=== PATIENT | female | born 1955 | race Caucasian/White ===

== ENCOUNTER 2020-04-04 15:43 | Emergency (ER) | payer OTHER ==
[2020-04-04 15:59] VITALS: BP 147/78
--- NOTE | 2020-04-04 16:04 | ER Document Report ---
ED Fall - General Chief Complaint: Fall Injury Stated Complaint: FALL/RIGHT KNEE,SHOULDER PAIN Time Seen by Provider: 04/04/20 16:00 Primary Care Provider: KANDY WATERMAN MD [Primary Care Provider] - Follow up as needed Notes: CHIEF COMPLAINT: Slip and fall HPI: 64-year-old female presenting for right knee pain after slip and fall in [facility]. Slipped and fell forward landing directly on the right knee. Complain s of pain just under the kneecap. Patient states it hurts to try to put weight down on it. Denies ankle or hip injury. Complains of some right shoulder soreness but is not concerned about having broken anything in her shoulder. States that she caught herself with her arm when she went to the ground. Denies wrist or elbow discomfort. ROS: See HPI - all other systems were reviewed and are otherwise negative Constitutional: no fever Integumentary: no rash Allergy: no hives Musculoskeletal: + extremity pain or swelling Neurological: no numbness/tingling MEDICATIONS: I agree with the patient medications as charted by the RN. ALLERGIES: I agree with the allergies as charted by the RN. PAST MEDICAL HISTORY/PAST SURGICAL HISTORY: Reviewed and agree as charted by RN. SOCIAL HISTORY: Reviewed and agree as charted by RN. FAMILY HISTORY: No significant familial comorbid conditions directly related to patient complaint EXAM: Reviewed vital signs as charted by RN. CONSTITUTIONAL: Alert and oriented and responds appropriately to questions. Well-appearing; well-nourished HEAD: Normocephalic; atraumatic EYES: Conjunctivae clear, sclerae non-icteric ENT: normal nose; no rhinorrhea; moist mucous membranes NECK: Supple without meningismus; non-tender; no cervical lymphadenopathy, no masses CARD: symmetric distal pulses RESP: Normal chest excursion without splinting or tachypnea ABD/GI: non-distended BACK: The back appears normal and is non-tender to palpation EXT: Normal ROM in all joints; there is no visible edema or effusion to the right knee. There is tenderness over the inferior aspect of the patella on palpation. No ballottement of the patella. Negative anterior drawer sign no laxity on varus or valgus rotation. There is no hip or ankle discomfort on palpation or range of motion of the right lower extremity. Patient is able to fully range the right shoulder without significant discomfort around the shoulder girdle and is not complaining of any discomfort on palpation of the right shoulder girdle. SKIN: Normal color for age and race; warm; dry; good turgor; no acute lesions noted NEURO: Moves all extremities equally; Motor and sensory function intact PSYCH: The patient's mood and manner are appropriate. Grooming and personal hygiene are appropriate. MDM: 64-year-old female primarily for right knee pain. Has some soreness of the right shoulder but declines x-ray imaging of this. We will obtain an x-ray of the right knee. Patient has no hip or ankle discomfort suggesting fracture or need for imaging - Related data Allergies/Adverse Reactions: Penicillins Allergy (Verified 04/04/20 16:02) Past Medical History - Social History Smoking Status: Unknown if Ever Smoked Family History: Reviewed & Not Pertinent Physical Exam - Vital signs Vitals: Temp Pulse Resp BP Pulse Ox 98.8 F 93 18 147/78 H 99 04/04/20 15:57 04/04/20 15:57 04/04/20 15:57 04/04/20 15:57 04/04/20 15:57 Course - Re-evaluation Re-evalutation: 04/04/20 17:10 X-ray imaging does not reveal evidence of fracture or dislocation. Will place in a knee immobilizer crutches for comfort, pain management follow-up orthopedics - Vital Signs Vital signs: Temp Pulse Resp BP Pulse Ox 98.8 F 93 18 147/78 H 99 04/04/20 15:57 04/04/20 15:57 04/04/20 15:57 04/04/20 15:57 04/04/20 15:57 - Laboratory Results Critical Laboratory Results Reviewed: No Critical Results - Radiology Results Critical Radiology Results Reviewed: No Critical Results Procedures - Immobilization Right Knee Time completed: 17:10 Pre-Proc Neuro Vasc Exam: Normal Immobilizer type: Crutches, Knee immobilizer Performed by: PCT Post-Proc Neuro Vasc Exam: Normal, Unchanged from pre-exam Alignment checked and good: Yes Discharge - Discharge Clinical Impression: Fall Qualifiers: Encounter type: initial encounter Qualified Code(s): W19.XXXA - Unspecified fall, initial encounter Right shoulder strain Qualifiers: Encounter type: initial encounter Qualified Code(s): S46.911A - Strain of unspecified muscle, fascia and tendon at shoulder and upper arm level, right arm, initial encounter Right knee injury Qualifiers: Encounter type: initial encounter Qualified Code(s): S89.91XA - Unspecified injury of right lower leg, initial encounter Condition: Stable Disposition: HOME, SELF-CARE Instructions: Suspected Internal Knee Injury ([facility]) Additional Instructions: 1. ice and elevate the lower extremity as much as possible 2. utilize the crutches as instructed, weight bearing as tolerated with splint on 3. medications for pain as prescribed, no driving on narcotics 4. follow up with orthopedics for further evaluation and treatment, call for appt. 5. do not sleep in the knee immobilizer, take off at night or rest. Prescriptions: Hydrocodone/Acetaminophen [[place] 5-325 mg Tablet] 1 tab PO Q4 PRN #10 tablet PRN Reason: Diclofenac Sodium [Voltaren 50 Mg Tablet.] 50 mg PO BID #20 tablet. Referrals: KANDY WATERMAN MD [Primary Care Provider] - Follow up as needed KEVIN HERNANDEZ JR, DO [ACTIVE PROVISIONAL STAFF] - Follow up as needed
--- NOTE | 2020-04-04 17:07 | RADIOLOGY REPORT (SQ) ---
EXAM DESCRIPTION: KNEE RIGHT 4 VIEWS IMAGES COMPLETED DATE/TIME: 04/04/2020 3:32 pm REASON FOR STUDY: fall. COMPARISON: None. NUMBER OF VIEWS: Four views. TECHNIQUE: AP, lateral, and both oblique radiographic images acquired of the right knee. LIMITATIONS: None. FINDINGS: MINERALIZATION: Normal. BONES: No acute fracture or dislocation. No worrisome bone lesions. JOINT: No effusion. SOFT TISSUES: No soft tissue swelling. No radio-opaque foreign body. OTHER: No other significant finding. IMPRESSION: NEGATIVE STUDY OF THE RIGHT KNEE. NO RADIOGRAPHIC EVIDENCE OF ACUTE INJURY. TECHNICAL DOCUMENTATION: JOB ID: [id number] 2010 [employer]- All Rights Reserved Reading location - IP/workstation name: [email or web address]
--- OUTSIDE RECORDS SUMMARY | 2020-04-07 10:34 | XMS REPORT ---
:1955 Author Organization Formerly [facility], later [facility] Address [facility] [address] [place] [id number] Care Team Providers Name Role Phone Kandy Pinto Primary Care Physician Unavailable Abelardo Pinto MD Attending Clinician Unavailable MD Abelardo Pinto Attending Clinician Unavailable MD Yadi Quevedo Attending Clinician Unavailable MD Yadi Quevedo Attending Clinician Unavailable Allergies, Adverse Reactions, Alerts Allergy Name Allergy Status Severity Reaction(s) Onset Inactive Treat ing Comments Type Date Date Clinician sulfa drugs Drug Active Mild Cutaneous allergy eruption (morphologic abnormality) Penicillins Penicillins Active Rash Sulfa Drugs Sulfa Drugs Active Rash penicillin Drug Active Mild Cutaneous allergy eruption (morphologic abnormality) Medications Ordered Filled Start Stop Current Ordering Indication Dosage Frequency Signature Comments Components Medication Medication Date Date Medication? Clinician (SIG) Name Name Pravastatin 2019-03 No Kandy Zhou Pravastati Sodium 20 - Millie SCHMITZ n Sodium MG Oral 09:29: 20 MG Oral Tablet 07 Tablet TAKE ONE TABLET BY MOUTH EVERY NIGHT AT BEDTIME Quantity: 90 Refills: 0 Kandy Pinto MD Start : 0Active Pravastatin 2019-03 Yes Kandy Zhou Pravastati Sodium 20 - Millie SCHMITZ n Sodium MG Oral 09:29: 20 MG Oral Tablet 07 Tablet TAKE ONE TABLET BY MOUTH EVERY NIGHT AT BEDTIME Quantity: 90 Refills: 0 Kandy Pinto MD Start : 0Active Omeprazole Yes Kandy Zhou Omeprazole 20 MG Oral 9-30 Millie SCHMITZ 20 MG Oral Capsule 12:17: Capsule Delayed 19 Delayed Release Release TAKE 1 CAPSULE BY MOUTH 2 TIMES A DAY , 30 MINUTES PRIOR TO BREAKFAST AND SUPPER Quantity: 180 Refills: 3 Kandy Pinto MD Start : 0Active Meloxicam 2019- No Kandy Zhou Meloxicam 7.5 MG Oral 8-28 Millie SCHMITZ 7.5 MG Tablet 13:59: Oral 04 Tablet TAKE ONE TABLET BY MOUTH EVERY DAY WITH FOOD Quantity: 90 Refills: 3 Kandy Pinto MD Start : 0Active Meloxicam 2019-0 Yes Kandy Zhou Meloxicam 7.5 MG Oral 11-07 Millie SCHMITZ 7.5 MG Tablet 13:59: Oral 04 Tablet TAKE ONE TABLET BY MOUTH EVERY DAY WITH FOOD Quantity: 90 Refills: 3 Kandy Pinto MD Start : 0Active Pravastatin 2019-0 No Kandy Zhou Pravastati Sodium 20 10-21 Millie SCHMITZ n Sodium MG Oral 15:25: 20 MG Oral Tablet 38 Tablet TAKE ONE TABLET BY MOUTH EVERY NIGHT AT BEDTIME Quantity: 90 Refills: 0 Kandy Pinto MD Start : 0Active DULoxetine 2019- Yes Abdulaziz DULoxetine HCl - 20 MG 6-05 Averell HCl - 20 Oral 00:00: D.O. MG Oral Capsule 00 Capsule Delayed Delayed Release Release Particles Particles one daily for 7 days, then two daily Quantity: 60 Refills: 10 Averell D.OAbdulaziz Farah Start : 16-Aug-2019 Active predniSONE 2019-0 Yes Kandy Zhou predniSONE 5 MG Oral 08-07 Millie SCHMITZ 5 MG Oral Tablet 00:00: Tablet 00 TAKE 8 TABLETS THE FIRST DAY THEN DECREASE BY ONE TABLET DAILY UNTIL FINISHED Quantity: 36 Refills: 0 Kandy Pinto MD Start : 0Active Pregabalin 2019-0 Yes Abdulaziz Pregabalin 25 MG Oral 07-21 Averell 25 MG Oral Capsule 00:00: D.O. Capsule 00 one tid Quantity: 90 Refills: 3 Averell D.O.Abdulaziz Start : 0Active Soolantra 1 2019-0 Yes Soolantra % External 2-20 1 % Cream 00:00: External 00 Cream Quantity: 45 Refills: 0 Start : 0Active predniSONE 2018-03 Yes predniSONE 20 MG Oral 2-27 20 MG Oral Tablet 00:00: Tablet 00 Quantity: 18 Refills: 0 Start : 9Active Promethazin 2018-03 Yes Promethazi e-DM 2-27 ne-DM 6.25-15 00:00: 6.25-15 MG/5ML Oral 00 MG/5ML Syrup Oral Syrup Quantity: 118 Refills: 0 Start : 9Active Telmisartan 2018-03 No Kandy Zhou Telmisarta 40 MG Oral 2-11 Millie SCHMITZ n 40 MG Tablet 11:12: Oral 02 Tablet TAKE ONE TABLET BY MOUTH DAILY FOR BLOOD PRESURE Quantity: 90 Refills: 3 Kandy Pinto MD Start : 9Active Gabapentin 2018-03 Yes Kandy Zhou Gabapentin 100 MG Oral - Millie SCHMITZ 100 MG Capsule 00:00: Oral 00 Capsule TAKE ONE IN THE AM, ONE AT NOON AND 2 AT BEDTIME Quantity: 360 Refills: 3 Kandy Pinto MD Start : 9Active aspirin 325 Yes 325mg 325 mg = 1 mg oral 11-27 tab(s), tablet 07:51: PO, BID, # 00 60 tab(s), 0 Refill(s) omeprazole Yes 20mg 20 mg = 1 20 mg oral 11-19 cap(s), delayed 12:55: PO, Daily release 00 capsule Vitamin B Yes 11 1 tab(s), Complex 11-19 PO, Daily 12:55: 00 telmisartan Yes 40mg 40 mg = 1 40 mg oral 11-19 tab(s), tablet 12:54: PO, Daily 00 fluorometho Yes 1[drp] 1 drop(s), lone 0.1% 11-19 Eyes-Both, ophthalmic 12:53: Daily suspension 00 Omeprazole No Kandy Zhou Omeprazole 20 MG Oral 10-10 Millie SCHMITZ 20 MG Oral Capsule 13:31: Capsule Delayed 03 Delayed Release Release TAKE 1 CAPSULE BY MOUTH 2 TIMES A DAY , 30 MINUTES PRIOR TO BREAKFASTA ND SUPPER Quantity: 180 Refills: 3 Kandy Pinto MD Start : 9Active Pravastatin No Kandy Zhou Pravastati Sodium 20 10-10 Millie SCHMITZ n Sodium MG Oral 13:30: 20 MG Oral Tablet 54 Tablet TAKE ONE TABLET BY MOUTH EVERY NIGHT AT BEDTIME Quantity: 90 Refills: 3 Kandy Pinto MD Start : 9Active Meloxicam No Kandy Zhou Meloxicam 7.5 MG Oral 10-10 Millie SCHMITZ 7.5 MG Tablet 13:27: Oral 00 Tablet TAKE ONE TABLET BY MOUTH EVERY DAY WITH FOOD Quantity: 90 Refills: 3 Kandy Pinto MD Start : 9Active Fluorometho Yes Fluorometh lone 0.1 % 4-03 olone 0.1 Ophthalmic 00:00: % Suspension 00 Ophthalmic Suspension Quantity: 5 Refills: 0 Start : 13-Jun-2018 Active Shingrix 50 Yes Kandy Zhou Shingrix MCG - Millie SCHMITZ 50 MCG Intramuscul 00:00: Intramuscu ar 00 lar Suspension Suspension Reconstitut Reconstitu ed al INJECT SECOND DOSE 2-6 MONTHS AFTER FIRST DOSE. Quantity: 1 Refills: 0 Kandy Pinto MD Start : 9Active Shingrix 50 Yes Kandy Zhou Shingrix MCG/0.5ML 04-12 Millie SCHMITZ 50 Intramuscul 00:00: MCG/0.5ML ar 00 Intramuscu Suspension lar Reconstitut Suspension ed Reconstitu al INJECT DOSE DIRECTED. Quantity: 1 Refills: 0 Kandy Pinto MD Start : 9Active Levothyroxi Yes Levothyrox ne Sodium 30 ine Sodium 112 MCG 00:00: 112 MCG Oral Tablet 00 Oral Tablet Quantity: 90 Refills: 0 Start : 9Active Telmisartan Yes Kandy Zhou 1 QD Telmisarta 80 MG Oral -30 Millie SCHMITZ n 80 MG Tablet 00:00: Oral 00 Tablet TAKE 1 TABLET DAILY Quantity: 90 Refills: 2 Kandy Pinto MD Start : 8Active Albuterol 2016-03 Yes Kandy Zhou Albuterol Sulfate HFA 0-18 Millie SCHMITZ Sulfate 108 (90 00:00: HFA 108 Base) 00 (90 Base) MCG/ACT MCG/ACT Inhalation Inhalation Aerosol Aerosol Solution Solution INHALE 1-2 PUFFS EVERY 4-6 HOURS NEEDED AND DIRECTED. Quantity: 1 Refills: 6 Kandy Pinto MD Start : 7Active 8.5 GM Inhaler pravastatin Yes 20mg 20 mg = 1 20 mg oral 2-11 tab(s), tablet 12:30: PO, qPM, 0 00 Refill(s) Synthroid Yes 112ug 112 mcg = 112 mcg 2-11 1 tab(s), (0.112 mg) 12:29: PO, qAM, 0 oral tablet 00 Refill(s) Meloxicam No Kandy B Meloxicam 7.5 MG Oral 4-05 Millie SCHMITZ 7.5 MG Tablet 00:00: Oral 00 Tablet TAKE ONE TABLET BY MOUTH EVERY DAY WITH FOOD Quantity: 90 Refills: 3 Kandy Pinto MD Start : 16-Jun-2011 Active HYDROcodone No Kandy B HYDROcodon -Acetaminop 12-08 Millie hernandezAcetami n hen 5-325 00:00: ophen MG Oral 00 5-325 MG Tablet Oral Tablet TAKE 1 TABLET EVERY 4 TO 6 HOURS NEEDED FOR SEVERE PAIN. Quantity: 120 Refills: 0 Kandy Pinto MD Start : 1Active HYDROcodone No Kandy B Roslynodon -Acetaminop 12-08 Millie hernandezAcetami n hen 5-325 00:00: ophen MG Oral 00 5-325 MG Tablet Oral Tablet TAKE 1 TABLET EVERY 4 TO 6 HOURS NEEDED FOR SEVERE PAIN. Quantity: 120 Refills: 0 Kandy Pinto MD Start : 1Active HYDROcodone No Kandy B HYDROcodon -Acetaminop 12-08 Millie hernandezAcetami n hen 5-325 00:00: ophen MG Oral 00 5-325 MG Tablet Oral Tablet TAKE 1 TABLET EVERY 4 TO 6 HOURS NEEDED FOR SEVERE PAIN. Quantity: 120 Refills: 0 Kandy Pinto MD Start : 1Active HYDROcodone No Kandy B HYDROcodon -Acetaminop 12-08 Millie hernandezAcetami n hen 10-325 00:00: ophen MG Oral 00 10-325 MG Tablet Oral Tablet Refills: 0 Kandy Pinto MD Start : 1Active HYDROcodone No Kandy B HYDROcodon -Acetaminop 12-08 Millie hernandezAcetami n hen 10-325 00:00: ophen MG Oral 00 10-325 MG Tablet Oral Tablet take one tablet every 4-6 hours prn severe pain Quantity: 100 Refills: 0 Kandy Pinto MD Start : 1Active HYDROcodone 2011-0 No Kandy B HYDROcodon -Acetaminop 12-08 Millie hernandezAcetami n hen 10-325 00:00: ophen MG Oral 00 10-325 MG Tablet Oral Tablet take one tablet every 4-6 hours prn severe pain Quantity: 100 Refills: 0 Kandy Pinto MD Start : 1Active HYDROcodone No Kandy B HYDROcodon -Acetaminop 12-08 Millie hernandezAcetami n hen 10-325 00:00: ophen MG Oral 00 10-325 MG Tablet Oral Tablet take one tablet every 4-6 hours prn severe pain Quantity: 100 Refills: 0 Kandy Pinto MD Start : 1Active HYDROcodone Yes Kandy B HYDROcodon -Acetaminop 12-08 Millie hernandezAcetami n hen 10-325 00:00: ophen MG Oral 00 10-325 MG Tablet Oral Tablet take one tablet every 4-6 hours prn severe pain Quantity: 100 Refills: 0 Kandy Pinto MD Start : 1Active Levothyroxi Yes Kandy B Levothyrox ne Sodium - Millie SCHMITZ ine Sodium 125 MCG 00:00: 125 MCG Oral Tablet 00 Oral Tablet TAKE 1 TABLET BY MOUTH EVERY MORNING 30 MINUTES BEFORE BREAKFAST Quantity: 90 Refills: 3 Kandy Pinto MD Start : 0Active Cyclobenzap Yes Kandy B Cyclobenza rine HCl - 3- Millie SCHMITZ nelly HCl 10 MG Oral 00:00: - 10 MG Tablet 00 Oral Tablet TAKE ONE TABLET 3 TIMES A DAY WHEN NEEDED Quantity: 270 Refills: 0 Kandy Pinto MD Start : 8Active Aspirin 81 2004-0 Yes Esther 1 QD Aspirin 81 MG TABS 11-19 A Avitia MG TABS 00:00: TAKE 1 00 TABLET DAILY. Refills: 0 Esther Avitia MD Start : 19-Nov-2004 Active Problems Condition Condition Condition Status Onset Resolution Last Treatin g Comments Name Details Category Date Date Treatment Clinician Date Colon, Colon, Problem Active 2011-03 diverticulo diverticulo 0-18 sis sis 00:00: 00 Immunizatio Immunizatio Problem Active n due n due Esophageal Esophageal Problem Active reflux reflux Lightheaded Lightheaded Problem Active ness ness Stress Stress Problem Active incontinenc incontinenc e in female e in female Allergic Allergic Problem Active rhinitis rhinitis Pneumonia Pneumonia Problem Active due to due to COVID-19 COVID-19 virus virus Solitary Solitary Problem Active pulmonary pulmonary nodule nodule Fuchs' Fuchs' Problem Active corneal corneal dystrophy dystrophy Malaise and Malaise and Problem Active fatigue fatigue Visit for Visit for Problem Active screening screening mammogram mammogram Hypoglycemi Hypoglycemi Problem Active a a Musculoskel Musculoskel Problem Active etal pain, etal pain, chronic chronic Toe pain, Toe pain, Problem Active left left Ingrown Ingrown Problem Active nail of nail of great toe great toe of left of left foot foot Pain in Pain in Problem Active joint of joint of right right shoulder shoulder Former Former Problem Active smoker smoker Former Former Problem Active cigarette cigarette smoker smoker Chronic low Chronic low Problem Active back pain back pain 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 Fatigue Fatigue Problem Active Injury of Injury of Problem Active right right axillary axillary nerve nerve Hypertensio Hypertensio Problem Active n n Hypercholes Hypercholes Problem Active terolemia terolemia Impaired Impaired Problem Active glucose glucose regulation regulation 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 At risk of At risk for Problem suspend P roblem infection infection(C ed ad ded (finding) onfirmed)2 aut omatic ally by system based on initiati o n of the At Risk for Infectio n Plan of Care. At risk for Fall Problem suspend Prob jameel falls risk(Confir ed adde d (finding) med)4 automa tic ally by system based on initiati o n of the Fall Ris k Plan of Care. Discharge Discharge Problem active Prob jameel planning planning(Co add ed (procedure) nfirmed)3 au tomatic ally by system based on initiati o n of the Discharg e Planning Plan of Care Procedures Procedure Date / Time Performed Performing Clinician Devic e CT - Low Dose CT Lung Cancer 2020-02-28 00:00:00 Screening CBC 2020-02-25 00:00:00 Renal Panel 2020-02-25 00:00:00 Urinalysis 2020-02-25 00:00:00 HGBA1C 2020-02-25 00:00:00 MG-Breast Tomosynthesis(3D) 2019-12-04 00:00:00 Screening (Bilateral) MG-Mammogram Screening (Bilateral) 2019-12-04 00:00:00 HGBA1C 2019-12-03 00:00:00 TSH 2019-12-03 00:00:00 Free T4 2019-12-03 00:00:00 CBC 2019-12-03 00:00:00 CMP(Complete Metabolic Panel) 2019-12-03 00:00:00 Urinalysis 2019-12-03 00:00:00 Lipid Panel 2019-12-03 00:00:00 Total Reverse Shoulder Replacement 2018-11-26 07:59:00 IPO (Right)1 Procedures not documented Arthroscopy2 left cornea transplant right corna transplant tubal ligation Results Test Description Test Time Test Comments Text Results Atomic Results Result Comments CBC 2020-03-03 11:32:00 Test Item Value Reference Range Comments White Blood Cell (test code = White Blood Cell) 8.5 K/uL 3.5-11.1 Red Blood Cell (test code = Red Blood Cell) 4.29 {M/uL} 3.69 -4.87 Hemoglobin (test code = Hemoglobin) 13.6 g/dL 11.4-14.4 Hematocrit (test code = Hematocrit) 42 % 33-41 Mean Corpuscular Volume (test code = Mean Corpuscular Volume) 97 .4 fL 79.0-95.0 Mean Corpuscular Hemoglobin (test code = Mean Corpuscular 31.7 p g/mL 27.0-33.0 Hemoglobin) Mean Corpuscular Hemoglobin Concentration (test code = Mean 32.5 g/dL 33.5-35.5 Corpuscular Hemoglobin Concentration) Red Cell Distribution Width (test code = Red Cell 13.0 % 12.0-15.0 Distribution Width) Platelet (test code = Platelet) 234 K/uL 130-353 Mean Platelet Volume (test code = Mean Platelet Volume) 9.7 fL 7.5-10.7 Neutrophil Count, absolute (test code = Neutrophil Count, 5.0 K/ uL 1.9-7.2 absolute) Neutrophil Count Percentage (test code = Neutrophil Count 59.3 % 43.0-72.0 Percentage) Lymphocyte Count, absolute (test code = Lymphocyte Count, 2.4 K/ uL 1.1-2.7 absolute) Lymphocyte Count Percentage (test code = Lymphocyte Count 28.7 % 17.0-44.0 Percentage) Monocyte Count, absolute (test code = Monocyte Count, 0.7 K/uL 0.3-0.8 absolute) Monocyte Count Percentage (test code = Monocyte Count 8.6 % 4.5-12.4 Percentage) Eosinophil Count, absolute (test code = Eosinophil Count, 0.2 K/ uL 0.0-0.5 absolute) Eosinophil Count Percentage (test code = Eosinophil Count 2.5 % 0.7-7.8 Percentage) Basophil Count, absolute (test code = Basophil Count, 0.0 K/uL 0.0-0.1 absolute) Basophil Count Percentage (test code = Basophil Count 0.5 % 0.2-1.1 Percentage) Nucleated Red Blood Cell, absolute (test code = Nucleated Re d 0.00 K/uL 0.00-0.00 Blood Cell, absolute) Nucleated Red Blood Cell, percentage (test code = Nucleated 0.00 % 0.00-0.00 Red Blood Cell, percentage) [id number] 11:32:00 Test Item Value Reference Range Comments Urine Color (test code = Urine LT. YELLOW Yellow Color) Urine Clarity (test code = Urine CLEAR Clear Clarity) Urine Glucose (test code = Urine NEGATIVE Negative Glucose) Urine Ketones (test code = Urine NEGATIVE Negative Ketones) Urine Bilirubin (test code = Urine NEGATIVE Negative Bilirubin) Urine Specific [place] (test code 1.010 1.010-1.030 = Urine Specific [place]) Urine Blood (test code = Urine TRACE-INTACT Negative Blood) Urine pH (test code = Urine pH) 7.0 5.0-8.0 Urine Protein (test code = Urine NEGATIVE Negative Protein) Urine Urobilinogen (test code = 0.2 Eu/dl 0.2 Urine Urobilinogen) Urine Nitrites (test code = Urine NEGATIVE Negative Nitrites) Urine Leukocytes (test code = NEGATIVE Negative 0- 2 WBC0-2 RBC0-2 EPI Urine Leukocytes) Hemoglobin [id number] 11:32:00 Test Item Value Reference Range Comments Hemoglobin A1C (test code = 4548-4) 5.8 % 4.3-6.2 [id number] 11:32:00 Test Item Value Reference Range Comments Glucose (test code = Glucose) 102 mg/dL 74-106 Sodium (test code = Sodium) 144 mmol/L 135-145 Potassium (test code = Potassium) 4.8 mmol/L 3.5-5.3 Chloride (test code = Chloride) 107 mmol/L 98-107 CO2 (test code = CO2) 32 mmol/L 22-30 Creatinine, serum (test code = Creatinine, serum) 0.80 mg/dL 0.10-1.04 Glomerular Filtration Rate (test code = >60 >60 Glomerular Filtration Rate) Glomerular Filtration Rate AA (test code = >60 >60 Glomerular Filtration Rate AA) Blood Urea Nitrogen (test code = Blood Urea 11 mg/dL 7-17 Nitrogen) Calcium (test code = Calcium) 9.3 mg/dL 8.4-10.5 Phosphorus (test code = Phosphorus) 3.8 mg/dL 2.5-4.5 Albumin (test code = 04673-6) 3.9 g/dL 3.5-5.0 CT - Low Dose CT Lung Cancer [id number] 10:52:00ORDERING PROVIDER: Kandy Caruso LOCATION: [facility] DESCRIPTION: CT - Low Dose CT Lung Cancer ScreeningIMAGES COMPLETED DATE/TIME: 03/03/2020 10:52 amREASON FOR STUDY: Z87.891Former cigarette smokerHas the patient had a Chest CT scan within the past year?Was the patientoffered tobacco cessation counseling?Was the patient engaged in shared decision making for this test?Does the patient have signs or symptoms of Lung Cancer?Is the patient a smoker?How many pack years?How many years since quitting smoking?Patients age:COMPARISON: 02/04/2019, 09/29/2017TECHNIQUE: Low Dose CT scan performed of the chest without intravenous contrast for purposes of screening for lung cancer. Images reviewed with lung, soft tissue and bone windows. Reconstructed coronal and sagittal MPR images reviewed. All images stored on PACS.All CT scanners at this facility use dose modulation, iterative reconstruction, and/or weight based dosing when appropriate to reduce radiation dose to as low as reasonably achievable (ALARA).[facility]: Dose Right [facility]: CareDose [facility]: Dose Right [facility]: Teradose 4D [facility]: Smart TechnologiesRADIATION DOSE: CTDIvol Mean:1.94, mGy DLP:67.72, mGy.cm 1.94 mGy.0.88 mSv.LIMITATIONS: No technical limitations.FINDINGS: LUNG NODULES: Stable 5 mm nodule you will posteromedial aspect the right upper lung zone. Stable 14 mm partially calcified mass right lower lung zone -most likely benign granuloma.REMAINING LUNGS AND PLEURA: No pleural effusions or calcifications. No pneumothorax. Patchy bilateral infiltrates - most likely post trophic when correlatedwith clinical information.HILAR AND MEDIASTINAL STRUCTURES: No identified masses. No abnormal nodes.HEART AND VASCULAR STRUCTURES: No aortic aneurysm. No pericardial effusion. No cardiac devices.CORONARY ARTERY CALCIFICATIONS: No significant calcifications.UPPER ABDOMEN, THYROID, BONES, OTHER SOFT TISSUES: No significant findings.IMPRESSION: BENIGN FINDINGS IN THE LUNGS.BILATERAL PATCHY INFILTRATES POST COULD LEAD INFECTION. FINDINGS DISCUSSED WITH DR. KANDY MORALEZ: LUNGRADS: 2 BENIGN APPEARANCE OR BEHAVIOR. NODULES WITH A VERY LOW LIKELIHOOD OF BECOMING A CLINICALLY ACTIVE CANCER DUE TO SIZE OR LACK OF GROWTH.MODIFIER: NONE.RECOMMENDATION: Continue annual screening with LDCT in 12months.COMMENT: CRITERIA:Solid nodule(s): < 6 mm; new < 4 mm.Part solid nodule(s): < 6 mm total diameter on baseline screening.Non solid nodule(s) (GGN): < 20 mm OR ? 20 and unchanged or slowly growing.Category 3 or 4 nodules unchanged for ? 3 months.TECHNICAL DOCUMENTATION: JOB ID: [id number] ID # [id number]: Final reports with documentation of one or more dose reduction techniques (e.g., Automated exposure control, adjustment of the mA and/or kV according to patient size, use of iterative reconstruction technique)? 2010 [employer] RadiologyElectronically Signed By: Jordin Dye M.D. Mar 03 2020 2:28 PMReading location - IP/workstation name: [id number] RdRp Resp QI [id number] 00:00:00 Test Item Value Reference Range Comments SARS-CoV-2 RdRp Resp QI Positive [place] [facility] Case ID: MK+probe (test code = COVID_105 149124 20092-2) [id number] 10:06:00 Test Item Value Reference Range Comments White Blood Cell (test code = White Blood Cell) 9.5 K/uL 3.5-11.1 Red Blood Cell (test code = Red Blood Cell) 4.36 {M/uL} 3.69 -4.87 Hemoglobin (test code = Hemoglobin) 14.0 g/dL 11.4-14.4 Hematocrit (test code = Hematocrit) 43 % 33-41 Mean Corpuscular Volume (test code = Mean 99.3 fL 79.0-9 5.0 Corpuscular Volume) Mean Corpuscular Hemoglobin (test code = Mean 32.1 pg/mL 27 .0-33.0 Corpuscular Hemoglobin) Mean Corpuscular Hemoglobin Concentration (test 32.3 g/dL 33.5-35.5 code = Mean Corpuscular Hemoglobin Concentration) Red Cell Distribution Width (test code = Red 12.7 % 12. 0-15.0 Cell Distribution Width) Platelet (test code = Platelet) 239 K/uL 130-353 Mean Platelet Volume (test code = Mean Platelet 9.3 fL 7.5-10.7 Volume) Neutrophil Count, absolute (test code = 5.7 K/uL 1.9-7.2 Neutrophil Count, absolute) Neutrophil Count Percentage (test code = 59.9 % 43.0-72 .0 Neutrophil Count Percentage) Lymphocyte Count, absolute (test code = 2.7 K/uL 1.1-2.7 Lymphocyte Count, absolute) Lymphocyte Count Percentage (test code = 28.5 % 17.0-44 .0 Lymphocyte Count Percentage) Monocyte Count, absolute (test code = Monocyte 0.8 K/uL 0 .3-0.8 Count, absolute) Monocyte Count Percentage (test code = Monocyte 7.9 % 4.5-12.4 Count Percentage) Eosinophil Count, absolute (test code = 0.3 K/uL 0.0-0.5 Eosinophil Count, absolute) Eosinophil Count Percentage (test code = 2.9 % 0.7-7.8 Eosinophil Count Percentage) Basophil Count, absolute (test code = Basophil 0.1 K/uL 0 .0-0.1 Count, absolute) Basophil Count Percentage (test code = Basophil 0.6 % 0.2-1.1 Count Percentage) Nucleated Red Blood Cell, absolute (test code = 0.00 K/uL 0.00-0.00 Nucleated Red Blood Cell, absolute) Nucleated Red Blood Cell, percentage (test code 0.00 % 0.00-0.00 = Nucleated Red Blood Cell, percentage) [id number] 10:06:00 Test Item Value Reference Range Comments Urine Color (test code = Urine LT. YELLOW Yellow Color) Urine Clarity (test code = CLEAR Clear Urine Clarity) Urine Glucose (test code = NEGATIVE Negative Urine Glucose) Urine Ketones (test code = NEGATIVE Negative Urine Ketones) Urine Bilirubin (test code = NEGATIVE Negative Urine Bilirubin) Urine Specific [place] (test 1.005 1.010-1.030 code = Urine Specific [place]) Urine Blood (test code = Urine TRACE-LYSED Negative U RINE MICROSCOPIC: 0-2 Blood) RBCS Urine pH (test code = Urine pH) 5.5 5.0-8.0 Urine Protein (test code = NEGATIVE Negative Urine Protein) Urine Urobilinogen (test code = 0.2 Eu/dl 0.2 Urine Urobilinogen) Urine Nitrites (test code = NEGATIVE Negative Urine Nitrites) Urine Leukocytes (test code = NEGATIVE Negative Urine Leukocytes) Hemoglobin [id number] 10:06:00 Test Item Value Reference Range Comments Hemoglobin A1C (test code = 4548-4) 5.7 % 4.3-6.2 Thyroid Stimulating [id number] 10:06:00 Test Item Value Reference Range Comments Thyroid Stimulating Hormone (test code = 1.96 {mIU/mL} 0.46-4. 68 Thyroid Stimulating Hormone) Free [id number] 10:06:00 Test Item Value Reference Range Comments Free T4 (test code = Free T4) 1.54 ng/dL 0.78-2.19 CMP(Complete Metabolic Panel)2019-12-04 10:06:00 Test Item Value Reference Range Comments Glucose (test code = Glucose) 96 mg/dL 74-106 Sodium (test code = Sodium) 145 mmol/L 135-145 Potassium (test code = Potassium) 5.1 mmol/L 3.5-5.3 Chloride (test code = Chloride) 108 mmol/L 98-107 CO2 (test code = CO2) 30 mmol/L 22-30 Creatinine, serum (test code = Creatinine, serum) 0.80 mg/dL 0.10-1.04 Glomerular Filtration Rate (test code = >60 >60 Glomerular Filtration Rate) Glomerular Filtration Rate AA (test code = >60 >60 Glomerular Filtration Rate AA) Blood Urea Nitrogen (test code = Blood Urea 10 mg/dL 7-17 Nitrogen) Calcium (test code = Calcium) 9.7 mg/dL 8.4-10.5 Phosphorus (test code = Phosphorus) 3.9 mg/dL 2.5-4.5 Total Protein (test code = Total Protein) 6.8 g/dL 6.3-8. 2 Albumin (test code = 54525-7) 4.1 g/dL 3.5-5.0 Total Bilirubin (test code = Total Bilirubin) 0.5 mg/dL 0. 2-1.3 Bilirubin, unconj (test code = Bilirubin, unconj) 0.3 mg/dL 0.0-1.1 Bilirubin, Direct (test code = Bilirubin, Direct) 0.2 mg/dL 0.0-0.4 Alkaline Phosphatase (test code = Alkaline 100 U/L 20-15 0 Phosphatase) Alanine Transaminase (test code = Alanine 21 U/L 0-35 Transaminase) Aspartate Aminotransferase (test code = Aspartate 26 U/L 3-36 Aminotransferase) Lipid [id number] 10:06:00 Test Item Value Reference Range Comments Chol/HDL Ratio (test code = 2089-1) 2.7 {ratio} 0.0-6.0 High Density Lipoprotein Cholesterol (test code 63 mg/dL 40-110 = High Density Lipoprotein Cholesterol) Low Density Lipoprotein, calculated (test code = 76 mg/dL 1-130 Low Density Lipoprotein, calculated) MG-Mammogram Screening (Bilateral)2019-12-04 09:57:00ORDERING PROVIDER: Kandy PintoPERFORMINYadi [facility] Scre[facility] (Bilateral)IMAGES COMPLETED DATE/TIME: 12/04/2019 9:57 amREASON FOR STUDY: Z12.31Visit for screening mammogramCOMPARISON: Digital tomosynthesis bilateral screening mammogram dated 11/02/2018 common 09/26/2016 and digital bilateral screening mammogram dated 09/29/2017.EXAM PARAMETERS: S tandard craniocaudal and mediolateral oblique views of each breast recorded using digital acquisition.Read with the assistance of CAD..CEIM - Not availableLIMITATIONS: None.FINDINGS: No suspicious masses, suspicious calcifications or architectural distortion. No areas of concern.IMPRESSION: NEGATIVE MAMMOGRAM. BIRADS 1BREAST DENSITY: b. There are scattered areas of fibroglandular density.BIRAD:ASSESSMENT: 1 NEGATIVERECOMMENDATION: 1. ROUTINE SCREENINGCOMMENT: The patient has been notifiedof the results by letter per SA requirements. Additional notification policies are in place for contacting patient with suspicious or incomplete findings.Quality ID #[id number]: The [employer] recommends an annual screening mammogram for women aged 40 years or over. This facility utilizes a reminder system to ensure that all patients receive reminder letters, and/or direct phone calls for appointments. This includes reminders for routine screening mammograms, diagnostic mammograms, or other Breast Imaging Interventions when appropriate. This patient will be placed in the appropriate reminder system.TECHNICAL DOCUMENTATION: FINDING NUMBER: (1)ASSESSMENT: (1)JOB ID: [id number]? 2010 [employer]- All Rights ReservedElectronically Signed By: Brit Batres Dec 04 2019 11:43 AMReading location - IP/workstation name: [email or web address] Assessments Condition Name Status Diagnosis Date Treating Clinici an COVID-19 Active 0 Encounter for screening for other viral Active 0 diseases Fever, unspecified Active 0 Pain in right shoulder Active 0 Primary osteoarthritis, right shoulder Active 0 Aftercare following joint replacement Active 0 surgery Chronic obstructive pulmonary disease Active Ingrown nail of great toe of left foot Active Toe pain, left Active Ingrown nail of great toe of left foot Active Ingrown nail of great toe of left foot Active Ingrown nail of great toe of left foot Active Hypertension Active Fatigue Active Hypercholesterolemia Active Hypothyroidism Active Chronic obstructive pulmonary disease Active Chronic pain disorder Active Visit for screening mammogram Active Chronic low back pain Active Hypercholesterolemia Active Hypothyroidism Active Former cigarette smoker Active Chronic obstructive pulmonary disease Active Hypertension Active Pain in joint of right shoulder Active Chronic pain disorder Active Impaired glucose regulation Active Hypertension Active Chronic low back pain Active Hypercholesterolemia Active Hypothyroidism Active Former cigarette smoker Active Chronic obstructive pulmonary disease Active Impaired glucose regulation Active Brachial plexus neuropathy of right upper Active extremity Hypertension Active Encounter for immunization Active Injury of right axillary nerve Active Fatigue Active Hypercholesterolemia Active Hypothyroidism Active Chronic obstructive pulmonary disease Active Chronic pain disorder Active Impaired glucose regulation Active Neuralgic amyotrophy Active Hypertension Active Neuralgic amyotrophy Active Acute bronchitis with bronchospasm Active Hypercholesterolemia Active Hypothyroidism Active Chronic obstructive pulmonary disease Active Chronic pain disorder Active Arthralgia Active Impaired glucose regulation Active Visit for screening mammogram Active Hypercholesterolemia Active Hypothyroidism Active Chronic obstructive pulmonary disease Active Hypertension Active Arthralgia Active Impaired glucose regulation Active Immunization due Active Neuralgic amyotrophy Active Hypertension Active Hypercholesterolemia Active Chronic obstructive pulmonary disease Active Chronic pain disorder Active Arthralgia Active Impaired glucose regulation Active Fatigue Active Pneumonia due to COVID-19 virus Active Hypertension Active Musculoskeletal pain, chronic Active Hypercholesterolemia Active Hypothyroidism Active Hypertension Active Musculoskeletal pain, chronic Active Hypercholesterolemia Active Chronic obstructive pulmonary disease Active Encounters Start End Encounter Type Admission Attending Care Care Enc nter Date/Time Date/Time Type Clinicians Facility Department ID 2020-03-03 2020-03-03 Appointment; CADEN Pinto [facility] [id number] 10:45:00 10:45:00 Kandy Pinto Mark B MD 2020-03-03 2020-03-03 Appointment; [facility] [id number] 10:00:00 10:00:00 [facility] 2020-02-13 2020-02-13 O E Kandy Pinto [facility] [id number] 09:34:03 12:23:00 Kandy Pinto 2020-02-11 2020-02-11 O [facility] [id number] 15:13:00 23:59:59 2020-02-07 2020-02-07 Appointment; [facility] [id number] 09:00:00 09:00:00 Abdulaziz Roy D.O. 2019-12-04 2019-12-04 Appointment; [facility] [id number] 09:40:00 09:40:00 Mammogram, [place] 2019-12-04 2019-12-04 Appointment; CADEN Pinto [facility] [id number] 09:00:00 09:00:00 Kandy Pinto Mark B MD 2019-08-08 2019-08-08 Appointment; [facility] [id number] 11:30:00 11:30:00 Kandy Pinto Mark B MD 2019-08-05 2019-08-05 O [facility] [id number] 12:29:00 23:59:59 2019-07-22 2019-07-22 Appointment; [facility] [id number] 09:30:00 09:30:00 Abdulaziz Roy D.O. 2019-07-11 2019-07-11 Appointment; [facility] [id number] 15:30:00 15:30:00 Abdulaziz Roy D.O. 2019-07-11 2019-07-11 Appointment; [facility] [id number] 14:30:00 14:30:00 Joseph Betancur MD 2019 2019 Appointment; Millie [facility] [id number] 09:45:00 09:45:00 Kandy Pinto Mark B MD 2018-12-13 2019-04-18 Kandy Estrada [facility] [id number] 12:15:18 17:00:00 Kandy Quevedo 2019-02-04 2019-02-04 Appointment; [facility] [id number] 10:00:00 10:00:00 CT JOSEPH MARX 2019-02-04 2019-02-04 Appointment; Millie [facility] [id number] 09:00:00 09:00:00 Kandy Pinto Mark B MD 2018-11-02 2018-11-02 Appointment; [facility] [id number] 09:20:00 09:20:00 Mammogram, [place] 2018-11-02 2018-11-02 [id number] 08:30:00 08:30:00 Kandy Pinto Mark B MD 2018-07-24 2018-07-24 [facility] [id number] 14:30:00 14:30:00 Kandy Pinto Mark B MD 2018-06-12 2018-06-12 Appointment; [facility] [id number] 10:30:00 10:30:00 Maciej Arnold DPM 2018-05-21 2018-05-21 Appointment; [facility] [id number] 14:00:00 14:00:00 Maciej Arnold DPM 2018-05-14 2018-05-14 Appointment; [facility] [id number] 16:00:00 16:00:00 Maciej Arnold DPM 2018-05-09 2018-05-09 Appointment; [facility] [id number] 10:00:00 10:00:00 Maciej Arnold DPM 2018-04-12 2018-04-12 Appointment; Millie [facility] [id number] 08:45:00 08:45:00 Kandy Pinto Mark B MD 2018-01-10 2018-01-10 Appointment; Millie [facility] [id number] 09:00:00 09:00:00 Kandy Pinto Mark B MD Immunizations Ordered Immunization Filled Immunization Date Status Commen ts Refusal Reason Name Name Fluarix Quadrivalent 2019-12-04 Completed 0.5 ML Intramuscular 09:34:00 Suspension Prefilled Syringe Shingrix 50 MCG 2019-12-04 Completed Intramuscular 09:34:00 Suspension Reconstituted Shingrix 50 MCG 2019 Completed Intramuscular 10:22:00 Suspension Reconstituted Fluzone High-Dose 0.5 2018-01-10 Completed ML Intramuscular 09:36:00 Suspension Prefilled Syringe Influenza, injectable, 2016-12-28 Completed quadrivalent, 12:25:00 preservative free Pneumococcal 2016-04-28 Completed polysaccharide 00:00:00 vaccine, 23 valent Influenza 2014-12-11 Completed 00:00:00 Prevnar 13 2014-08-15 Completed Intramuscular 10:49:00 Suspension Influenza 2010-12-08 Completed 09:36:00 Flulaval INJ 2009-11-25 Completed 00:00:00 Influenza A (H1N1) 2009-03-17 Completed Monoval Vac SUSP 00:00:00 Influenza 2006-01-09 Completed 00:00:00 Payers Payer Name Policy Type Policy Number Effective Date Expiration D ate Plan of Treatment Planned Activity Planned Date Details Comments Future Scheduled Test [code = ] Social History Smoking Status Start Date Stop Date Ex-smoker (finding) Social History Observation Description Sex Female Vital Signs Vital Name Observation Time Observation Value Comments Systolic blood pressure 2020-03-03 11:28:00 125 mm[Hg] Loca tion: LUE; Position: Sittin g Diastolic blood pressure 2020-03-03 11:28:00 75 mm[Hg] Loc ation: LUE; Position: Sittin g Heart Rate 2020-03-03 11:28:00 75 /min Quality: Reg ular Respiratory rate 2020-03-03 11:28:00 15 /min Quality: No rmal Systolic blood pressure 2020-03-03 11:05:00 132 mm[Hg] Diastolic blood pressure 2020-03-03 11:05:00 70 mm[Hg] Heart Rate 2020-03-03 11:05:00 74 /min Weight 2020-03-03 11:05:00 178.8 [lb_av] Body mass index (BMI) 2020-03-03 11:05:00 32.7 kg/m2 [Ratio] Body temperature 2020-03-03 11:05:00 96.6 [degF] Temperature Oral 2020-02-13 12:20:00 37.7 Angie Heart Rate Monitored 2020-02-13 12:20:00 84 /min Respiratory Rate 2020-02-13 12:20:00 18 /min Systolic Blood Pressure 2020-02-13 12:20:00 138 mm[Hg] Diastolic Blood Pressure 2020-02-13 12:20:00 80 mm[Hg] Temperature Oral 2020-02-13 11:55:00 37.7 Angie Heart Rate Monitored 2020-02-13 11:55:00 80 /min Respiratory Rate 2020-02-13 11:55:00 20 /min Systolic Blood Pressure 2020-02-13 11:55:00 123 mm[Hg] Diastolic Blood Pressure 2020-02-13 11:55:00 63 mm[Hg] Systolic Blood Pressure 2020-02-13 11:25:00 108 mm[Hg] Diastolic Blood Pressure 2020-02-13 11:25:00 56 mm[Hg] Respiratory Rate 2020-02-13 11:25:00 18 /min Heart Rate Monitored 2020-02-13 11:25:00 80 /min Temperature Oral 2020-02-13 11:10:00 37.2 Angie Systolic blood pressure 2020-02-07 09:04:00 134 mm[Hg] Diastolic blood pressure 2020-02-07 09:04:00 62 mm[Hg] Body height 2020-02-07 09:04:00 62 [in_us] Weight 2020-02-07 09:04:00 180.1875 [lb_av] Body mass index (BMI) 2020-02-07 09:04:00 32.96 kg/m2 [Ratio] Body temperature 2020-02-07 09:04:00 97.3 [degF] Heart Rate 2020-02-07 09:04:00 86 /min Systolic blood pressure 2019-12-04 10:02:00 140 mm[Hg] Loca tion: LUE; Position: Sittin g Diastolic blood pressure 2019-12-04 10:02:00 78 mm[Hg] Loc ation: LUE; Position: Sittin g Heart Rate 2019-12-04 10:02:00 73 /min Quality: Reg ular Systolic blood pressure 2019-12-04 09:03:00 132 mm[Hg] Diastolic blood pressure 2019-12-04 09:03:00 80 mm[Hg] Weight 2019-12-04 09:03:00 180.2 [lb_av] Body mass index (BMI) 2019-12-04 09:03:00 32.96 kg/m2 [Ratio] Body temperature 2019-12-04 09:03:00 97.3 [degF] Heart Rate 2019-12-04 09:03:00 76 /min Hospital Discharge Instructions NameDatesDetailsInstructions not documentedNo data available for this section NameDatesDetailsInstructions not documentedNameDatesDetailsInstructions not documentedNameDatesDetailsInstructions not documented
== END 2020-04-04 17:30 | disposition home or self-care (01) ==
LOC: ER 15:43
DX: S89.91XA Unspecified injury of right lower leg, initial encounter (principal); S46.911A Strain of unspecified muscle, fascia and tendon at shoulder and upper arm level, right arm, initial encounter; W01.0XXA Fall on same level from slipping, tripping and stumbling without subsequent striking against object, initial encounter; Y92.512 Supermarket, store or market as the place of occurrence of the external cause; Z88.0 Allergy status to penicillin
CPT/HCPCS: 99284